=== PATIENT | female | born 1985 | race Caucasian/White ===

== ENCOUNTER 2017-04-15 23:20 | Inpatient (IN) | payer OTHER ==
[~2017-04-15] VITALS: Ht 162.6 cm; Wt 59.0 kg
[2017-04-15] MEDS ORDERED: Lactated Ringer's 1,000 ML IV PRN (23:48)
[2017-04-15] MEDS ORDERED: Oxytocin 30 Units/500 mL LR 30 UNITS in IV Premix 1 EACH IV PRN (23:50)
[2017-04-15] MEDS ORDERED: Oxytocin 10 Unit/mL Inj IM PRN (23:50)
[2017-04-15] MEDS ORDERED: Methylergonovine 0.2 mg/mL Inj IM PRN (23:50)
[2017-04-15] MEDS ORDERED: Ondansetron 2 mg/mL 2 mL Inj IVPUSH PRN ×2 (23:50→23:55)
[2017-04-15] MEDS ORDERED: fentaNYL-PF 50 mCg/mL 2 mL Inj IVPUSH PRN (23:50)
[2017-04-15] MEDS ORDERED: Hemorrhage Kit, Post Partum XX ONE (23:50)
[2017-04-15] MEDS ORDERED: Carboprost 250 mCg/mL Inj IM PRN (23:50)
[2017-04-15] MEDS ORDERED: Sodium Chloride LOK Flush 10 mL Syringe IVFLUSH PRN (23:50)
[2017-04-15] MEDS ORDERED: Lactated Ringer's 500 ML IV ONE (23:53)
[2017-04-15] MEDS ORDERED: EPHEDrine Sulfate 50 mg/mL Inj IVPUSH PRN (23:55)
[2017-04-15] MEDS ORDERED: Atropine 1 mg/10 mL (Code) Syringe IVPUSH PRN (23:55)
[2017-04-15] MEDS ORDERED: fentaNYL 2 mCg/mL-Bupiv 0.125% 100 ML EPIDURAL SCH (23:55)
--- NOTE | 2017-04-15 23:55 | PCM.HPANE ---
Patient Data Surgeon Admitting Provider:Gautam Deleon MD Attending Provider:Gautam Deleon MD Primary Care Physician:Nopcp Other Provider: Reason for Visit Term Labor Ht/WT & BMI Body Mass Index Past Anesthesia History Anesthesia History: Denies:: Abnormal Airway, Anesthesia Reactions, Difficult Intubation, Fam Anesthesia Reaction, Fam Malignant Hypertherm, Malignant Hyperthermia History History of ENT Problems?: No HEENT History: Denies:: Abnormal Airway Cataracts Difficult Intubation Dysphagia Glaucoma Hearing Problem Sinus Problem TMJ Denture Type: None Teeth Condition: Within Normal Limits Hx of Heart Problems?: No Cardiovascular History: Denies:: AICD Abdominal Aortic Aneurism Atrial Fibrillation Cardiac Surgery Chest Pain Congestive Heart Failure Coronary Artery Disease Edema Heart Murmur Hypertension Irregular Heartbeat Pacemaker Peripheral Vascular Rheumatic Fever Thrombophlebitis Valvular Heart Disease Hx of Respiratory Problem?: No Respiratory History: Denies:: Asthma COPD Chest Surgery Cough Dyspnea Emphysema Hemoptysis Oxygen Administration Pneumonia Pulmonary Embolism Tuberculosis Use of C-PAP Machine Use of Inhalers / NEBS Hx Neurologic Problems?: No Neurological History: Denies:: Alzheimer's Disease CVA Dementia Dizziness Headaches Multiple Sclerosis Parkinson's Disease Peripheral Neuropathy Seizures TIA Hx of GI Problems?: No Gastrointestinal History: Denies:: Cirrhosis Diverticulitis Gall Bladder Disease Gastroesphageal Reflux Gastrointestinal Bleeding Heartburn Hepatitis Hiatal Hernia Liver Disease Rectal Bleeding Hx of Problems?: No Genitourinary History: Denies:: HX of Hemodialysis Kidney Stones Urinary Tract Infection HX of Peritoneal Dialysis: No Female Hx: Positive for:: Currently Denies:: Endometriosis Pelvic Inflammatory Problems with Breasts? Skin History: Denies:: History Skin Disorders? Pressure Ulcers Hx Musculoskeletal Problems?: No Musculoskeletal History: Denies:: Back Injury Degenerative Joint Fibromyalgia Joint Replacement Musculoskeletal Trauma Myasthenia Gravis Osteoarthritis Rheumatoid Arthritis Systemic Lupus Hx of Psycho/Social Problems?: No Psycho Social History: Denies:: Anxiety Bipolar Disorder Hx Depression Suicide Attempt Hx Surgeries?: No Hx Any Other Health Problems?: No Other History: Denies:: Cancer Endocrine Disease Hospitalization Thyroid Disease Hx Diabetes: No Hx Alcohol Use: NoHx Substance Use: NoHave You Smoked inLast 12 mo: No Stop/Bang Risk Assessment Category Category 1A: Patient has history of documented sleep apnea, and HAS NOT received any narcotic, sedative or anesthesia administration during this stay. Category 1B: Patient has history of documented sleep apnea, and HAS received any narcotic , sedative or anesthesia administration during this stay Category 2: Patient has SUSPECTED Obstructive Sleep Apnea, and HAS received any narcotic , sedative or anesthesia administration during this stay. Category 3: Patient has SUSPECTED Obstructive Sleep Apnea and HAS NOT received narcotic, sedative or anesthesia administration during this stay. Category 4: Outpatient in Procedural Areas with known sleep apnea or who screen positive for High Risk via the STOP/BANG questionnaire. Exam Exam General Appearance: Alert, Oriented X3, Cooperative, Severe Distress HEENT/AIRWAY: MP 2, Neck Movement (from), Mouth Opening (wnl) Lungs: Clear to Auscultation Heart: Exam Unremarkable Plan Impression Patient chart reviewed, patient interviewed and anesthestic plan with risks, benefits, and alternatives discussed, and informed consent obtained. ASA Physical Status: ASA2 Mod Systemic Disease Anesthetic Plan: GA Bene/Risks/Altern/Consents: Yes HP Complete Prior to Induction: Yes Bob Molina MD Apr 15, 2017 23:55
--- NOTE | 2017-04-15 23:56 | HP ---
[address] [address] HISTORY AND PHYSICAL PATIENT: SYLVIA HAYDEN : 1985 MR#: [id number] ADMIT: 04/15/2017 JOB ID: [id number] DATE OF ADMISSION: 04/15/2017 HISTORY OF PRESENT ILLNESS: The patient is a 32-year-old, 3, para 2, at 39 weeks and 4 days, estimated due date April 18, 2017 who comes to Labor and Delivery with complaint of contractions that became strong and intense beginning at 10 p.m. The patient was seen for her visit in the clinic today, she was examined at around 2 p.m. The cervix was 4 cm dilated, 60% effaced, station -2, posterior, soft. The membranes were stripped. PAST MEDICAL HISTORY: Noncontributory. SOCIAL HISTORY: Patient denies smoking, alcohol, or illicit recreational drug use. ALLERGIES: NKDA. FAMILY HISTORY: Noncontributory. OBSTETRICAL HISTORY: Two prior spontaneous vaginal deliveries at 41 weeks at [facility], the 1st one in January 2013, the 2nd October 03, 2014. Both deliveries uncomplicated. The patient is a late transfer of care from the [facility] at 32 weeks and 3 days. The labs were reviewed and normal. She received flu vaccination and Tdap vaccination in this . She declined genetic testing. The heart rate tracing is reactive, category 1, baseline 130 beats per minute. The patient is having contractions 2-3 minutes. PHYSICAL EXAMINATION: Vital signs: Blood pressure 124/88, temperature 36.7, respiratory rate 18, pulse 80. HEENT: PERRLA. Chest: Clear bilaterally, no adventitious sounds. Cardiovascular: Regular rate and rhythm. The abdomen is gravid, fundal height appropriate for gestational age, abdomen is moderately tender during contractions. Extremities: No pitting edema, no calf tenderness. Portable Irrigation Operator exam: The membranes are intact, there is no vaginal bleeding, spotting or abnormal vaginal discharge. The cervix is 5 cm dilated, 90% effaced, station -2. ASSESSMENT/PLAN: The patient is a 32-year-old, 3, para 2, at 39 weeks and 4 days presents to Labor and Delivery in active labor, the cervix is currently 5 cm dilated. Patient is having contractions every 2 minutes and is very uncomfortable. She would like to have an epidural. Anesthesiologist was notified. The labs were sent. IV hydration is going to be started with lactated Ringer at 125 mL/h. Meanwhile, pain management will be provided with fentanyl. We will anticipate spontaneous vaginal delivery.
[2017-04-16 00:16] LABS: Mean Corpuscular Hemoglobin 29.9 pg (27.0-35.0)
--- NOTE | 2017-04-16 01:05 | PCM.ANEP1 ---
Post Anesthesia PACU Phase 1 Assessment Anesthetic Administered: Epidural Level of Alertness: Awake, talking PEÑA's with Equal Strength: No Pain: Yes Nausea or Vomiting: No CV Function & Hydration Stable: No Airway Device: Oxygen Delivery: Room Air Lungs: Normal Air Movement PACU Phase 2 Assessment Complications: No Follow up Care: No Patient Instructions Provided: N/A Bob Molina MD Apr 16, 2017 01:05
[2017-04-16] MEDS: Lactated Ringer's 1,000 ML IV SCH ×7 (01:43→23:53)
[2017-04-16] MEDS ORDERED: Witch Hazel-Glycerin Pads TOPICAL PRN (01:45)
[2017-04-16] MEDS ORDERED: oxyCODONE-Acetamin 5-325 mg Tablet PO PRN (01:45)
[2017-04-16] MEDS ORDERED: Oxytocin 10 Unit/mL Inj IM PRN (01:45)
[2017-04-16] MEDS ORDERED: LANOlin HPA 7 Gm Ointment TOPICAL PRN (01:45)
[2017-04-16] MEDS ORDERED: Oxytocin 30 Units/500 mL LR 30 UNITS in IV Premix 1 EACH IV PRN (01:45)
[2017-04-16] MEDS ORDERED: Hemorrhage Kit, Post Partum XX ONE (01:45)
[2017-04-16] MEDS ORDERED: Benzocaine (Dermoplast) 20% 60 Gm Spray TOPICAL PRN (01:45)
[2017-04-16] MEDS ORDERED: Methylergonovine 0.2 mg/mL Inj IM PRN (01:45)
[2017-04-16] MEDS ORDERED: Carboprost 250 mCg/mL Inj IM PRN (01:45)
--- NOTE | 2017-04-16 02:42 | OP ---
[address] [address] OPERATIVE REPORT PATIENT: SYLVIA HAYDEN : 1985 MR#: [id number] ADMIT: 04/15/2017 JOB ID: [id number] DATE OF SURGERY: 04/16/2017 SURGEON: PREOPERATIVE DIAGNOSIS(ES): A 32-year-old, 3, para 2, at 39 weeks and 4 days, active labor. POSTOPERATIVE DIAGNOSIS(ES): A 32-year-old, 3, para 3, status post spontaneous vaginal delivery at term. DELIVERY SUMMARY: The patient is a 32-year-old, 3, para 3 now, who came to Labor and Delivery in the evening of April 15, 2017, with complaint of contractions that started at 10 p.m. There was cervical change on exam, she was 5 cm dilated, 90% effaced, station -2, with bulging bag of amniotic fluid. She was admitted for delivery. The patient received an epidural. laboratories were normal. She was GBS negative. care was uncomplicated. She had spontaneous rupture of membranes and shortly after that she progressed to full dilation at 1:10 a.m. on March 16, 2017. She started pushing at the same time. She underwent spontaneous vaginal delivery at 1:26 a.m., delivered male with Apgars 9 at one minute and 9 at five minutes. The pocketed spring assembler was present at delivery. The placenta was delivered six minutes later at a.m., was found to be intact with three-vessel cord. The patient had a small second-degree midline perineal laceration that was repaired with four interrupted 2-0 chromic sutures. The oxytocin was started after delivery of the . Estimated blood loss was 110 mL. At the completion of delivery, all the instruments and sponges count were correct x2.
[2017-04-16] MEDS: Ascorbic Acid 500 mg Tablet PO SCH ×2 (08:01→17:22)
[2017-04-17] MEDS: Lactated Ringer's 1,000 ML IV SCH (01:43)
[2017-04-17 06:26] LABS: Mean Corpuscular Hemoglobin 29.9 pg (27.0-35.0); Mean Corpuscular Volume 92.2 fL (81-100)
--- NOTE | 2017-04-17 07:58 | PCM.DIMED ---
Discharge Instructions Date of Service Apr 17, 2017 Dates of Hospitalization Apr 15, 2017 at 23:37 Diet Discharge Diet: No restrictions Activity Discharge Activity: No restrictions Call your provider Call your provider for: Fever or Chills, Shortness of breath, Bleeding, Chest pain, Vomitting, Excessive diarrhea, Weakness (unilateral) Patient Instructions Follow-up with PCP in: 6 weeks Gautam Deleon MD Apr 17, 2017 07:58
[2017-04-17] MEDS ORDERED: OXYC1TAB24 PO (08:01)
[2017-04-17] MEDS ORDERED: IBUP800T28 PO (08:01)
[2017-04-17] MEDS ORDERED: DOCU-41 PO (08:01)
[2017-04-17] MEDS: Ascorbic Acid 500 mg Tablet PO SCH (09:04)
[2017-04-17 09:14] VITALS: BP 109/71; PULSE 60; RESP 20
--- NOTE | 2017-04-17 18:12 | DIS ---
[address] [address] DISCHARGE SUMMARY PATIENT: SYLVIA HAYDEN : 1985 MR#: [id number] ADMIT: 04/15/2017 JOB ID: [id number] DIS: 04/17/2017 ADMITTING DIAGNOSIS: A 32-year-old, 3, para 2, at 39 weeks and 4 days in active labor. DISCHARGE DIAGNOSIS: A 32-year-old, 3, para 3, status post spontaneous vaginal delivery at term. HOSPITAL COURSE: The patient is a 32-year-old, 3, para 3 now who came to Labor and Delivery in the morning of April 15, 2017 with complaint of contractions that started around 10 p.m. She was 5 cm dilated, 90% effaced, -2 station, with bulging bag of amniotic fluid. The patient was admitted for delivery. She was group B strep negative. heart rate tracing was reactive, category one, all the time throughout her labor. The patient had spontaneous rupture of membranes and after that she progressed to full dilation at 1:10 a.m. April 16, 2017, started pushing at around the same time, and underwent spontaneous vaginal delivery at 1:26 a.m. Delivered a baby boy with Apgars nine and 9 at one and 5 minutes. Blood loss 110 mL. She had a small second-degree laceration that was repaired with 2-0 chromic. On day one, March 17, 2017, the patient was doing well, ambulating, breast-feeding without any problems. Pain was well controlled with only Motrin extra-strength as needed. Vital signs were stable. The fundus was firm. There was no vaginal bleeding or abnormal discharge. Labs: WBC count 9.2, hemoglobin 11.5, hematocrit 35.5, platelet count 200. The patient was sent home on day one, April 17, 2017, with all discharge criteria met. She was given Motrin 800 mg p.o. t.i.d. p.r.n. for pain and Colace 100 mg p.o. b.i.d. p.r.n. for constipation. Followup visit in OB Clinic is scheduled in six weeks.
== END 2017-04-17 10:06 | disposition home or self-care (01) | DRG 775 ==
LOC: FBCO 23:20 → FBC 23:37
PROVIDERS: ADMIT Legal Medicine; ATTEND Legal Medicine
PROC: 10E0XZZ Delivery of Products of Conception, External Approach (ICD-10-PCS; principal; 2017-04-16)
PROC: 0KQM0ZZ Repair Perineum Muscle, Open Approach (ICD-10-PCS; 2017-04-16)
DX: O70.1 Second degree perineal laceration during delivery (principal); Z37.0 Single live birth; Z3A.39 39 weeks gestation of pregnancy; O77.0 Labor and delivery complicated by meconium in amniotic fluid